=== PATIENT | female | born 1965 ===

== ENCOUNTER 2018-08-18 12:19 | Emergency (ER) | payer OTHER ==
[2018-08-18 12:32] VITALS: BP 166/88; TEMP 98
[2018-08-18 12:33] VITALS: BMI 44.0
--- NOTE | 2018-08-18 13:41 | ED PDOC ---
HPI: CCC, URI, Sore Throat Time Seen by Provider: 08/18/18 12:41 Chief Complaint (Nursing): ENT Problem Chief Complaint (Provider): ENT Problem History Per: Patient, Supervisor [employer] (Pierce Nino ID #[id number]) History/Exam Limitations: language barrier Onset/Duration Of Symptoms: Other (x3 weeks) Current Symptoms Are (Timing): Still Present Additional Complaint(s): Patient is a 53 y/o female with a PMHx of HTN and diverticulitis who presents to the ED for evaluation of nasal congestion, sore throat, and a subjective fever for the past three weeks. Furthermore, patient also complains of an intermittent pruritic rash throughout her body for the past month, which she claims develops after eating. Patient denies facial pain, headache, throat swelling, cough, shortness of breath, and any history of allergies or anaphylactic reactions. PCP: None Provided Past Medical History Reviewed: Historical Data, Nursing Documentation, Vital Signs Vital Signs: Last Vital Signs Temp 98.0 F 08/18/18 12:31 Pulse 106 H 08/18/18 12:31 Resp 19 08/18/18 12:31 BP 166/88 H 08/18/18 12:31 Pulse Ox 97 08/18/18 12:31 - Medical History PMH: Diverticulitis, HTN - Surgical History Surgical History: No Surg Hx - Family History Family History: States: Unknown Family Hx - Home Medications Home Medications: Ambulatory Orders Medication Instructions Recorded Lisinopril/Hydrochlorothiazide 20 mg PO DAILY 05/26/16 [Lisinopril-Hctz 20-25 mg Tab] amLODIPine [Norvasc] 5 mg PO DAILY 05/26/16 Fluticasone Propionate [Flonase] 2 spr NS DAILY PRN #1 bottle 08/18/18 - Allergies Allergies/Adverse Reactions: Allergies Allergy/AdvReac Type Severity Reaction Status Date / Time No Known Allergies Allergy Verified 05/26/16 12:22 Review of Systems ROS Statement: Except As Marked, All Systems Reviewed And Found Negative Constitutional: Positive for: Fever (subjective) ENT: Positive for: Nose Congestion, Throat Pain (soreness). Negative for: Throat Swelling Respiratory: Negative for: Cough, Shortness of Breath Musculoskeletal: Negative for: Other (Facial Pain) Skin: Positive for: Rash (intermittent, pruritic rash throughout body) Neurological: Negative for: Headache Physical Exam - Reviewed Nursing Documentation Reviewed: Yes Vital Signs Reviewed: Yes - Physical Exam Appears: Positive for: No Acute Distress Head Exam: Positive for: ATRAUMATIC, NORMAL INSPECTION, NORMOCEPHALIC Skin: Positive for: Normal Color, Warm. Negative for: Rash Eye Exam: Positive for: EOMI, Normal appearance, PERRL ENT: Positive for: Normal ENT Inspection Neck: Positive for: Normal, Painless ROM, Supple Cardiovascular/Chest: Positive for: Regular Rate, Rhythm. Negative for: Murmur Respiratory: Positive for: Normal Breath Sounds. Negative for: Respiratory Distress Neurological/Psych: Positive for: Alert, Oriented (x3) - ECG O2 Sat by Pulse Oximetry: 97 (RA) Pulse Ox Interpretation: Normal - Progress ED Course And Treament: Rapid strep: negative. Medical Decision Making Medical Decision Making: Time: 1307 Impression: URI vs Strep Plan: Rapid Strep Group A Antigen Scribe Attestation: Documented by Chandan Block, acting as a scribe Dax May PA-C. Provider Scribe Attestation: All medical record entries made by the Scribe were at my direction and p ersonally dictated by me. I have reviewed the chart and agree that the record accurately reflects my personal performance of the history, physical exam, medical decision making, and the department course for this patient. I have also personally directed, reviewed, and agree with the discharge instructions and disposition. Disposition - Clinical Impression Clinical Impression: URI (upper respiratory infection) - Patient ED Disposition Is Patient to be Admitted: No - Disposition Disposition: Routine/Home Disposition Time: 14:00 Condition: STABLE Additional Instructions: FOLLOW UP WITH YOUR DOCTOR FOR FURTHER EVALUATION RETURN TO ED IMMEDIATELY IF SYMPTOMS WORSEN DAVE ECHEVARRIA, thank you for letting us take care of you today. Your provider was Eduin Sparrow MD and you were treated for THROAT PAIN;CONGESTION. The emergency medical care you received today was directed at your acute symptoms. If you were prescribed any medication, please fill it and take as directed. It may take several days for your symptoms to resolve. Return to the Emergency Department if your symptoms worsen, do not improve, or if you have any other problems. Please contact your doctor or call one of the physicians/clinics you have been referred to that are listed on the Patient Visit Information form that is included in your discharge packet. Bring any paperwork you were given at discharge with you along with any medications you are taking to your follow up visit. Our treatment cannot replace ongoing medical care by a primary care provider outside of the emergency department. Thank you for allowing the [facility] team to be part of your care today. If you had an X-Ray or CT scan: A Radiologist will review the ED reading if any change in treatment is needed we will contact you. If you had a blood, urine, or wound culture: It will take several days for the results, if any change in treatment is needed we will contact you. If you had an STI test: It will take 48 hours for the results. Please call after 1 week if you have not heard back. Prescriptions: Fluticasone Propionate [Flonase] 2 spr NS DAILY PRN #1 bottle PRN Reason: Allergy Symptoms Instructions: Viral Upper Respiratory Infection, Adult (DC) Print Language: SERBIAN
[2018-08-18 15:27] VITALS: PULSE 98; RESP 18
[2018-08-18 20:02] VITALS: O2SAT 97
== END 2018-08-18 15:32 | disposition home or self-care (01) ==
LOC: SUPCPDRO 12:19 → H.ER 12:19
DX: J06.9 Acute upper respiratory infection, unspecified (principal); I10 Essential (primary) hypertension